=== PATIENT | male | born 1980 | race Caucasian/White ===

== ENCOUNTER → 2016-10-20 | Outpatient (REF) ==
--- NOTE | 2016-10-20 15:44 | REP ---
PARTIAL LUMBAR SPINE, THREE VIEWS: HISTORY: Degenerative disc disease. COMPARISON: 10/03/2016. There is no acute fracture or subluxation. There are old compression fractures of the T12 and L1 vertebral bodies with minimal height loss. The L3-4 and L4-5 intervertebral discs are decreased in height consistent with disc degeneration. Osteophytes are present on T12 through L2. There is loss the normal lordotic curve. IMPRESSION: Degenerative change as described above. Signed by Enrique Tovar MD 10/20/2016 03:47 P
--- NOTE | 2016-10-20 15:52 | REP ---
RIGHT SHOULDER, THREE VIEWS: HISTORY: Degenerative joint disease. There is no acute fracture or dislocation. The joint spaces are normal in appearance. IMPRESSION: There is no acute fracture or dislocation. Signed by Enrique Tovar MD 10/20/2016 03:53 P
--- NOTE | 2016-10-20 15:53 | REP ---
PARTIAL RIGHT KNEE, TWO VIEWS: HISTORY: Degenerative joint disease. There is no acute fracture or dislocation. The joint spaces are normal in appearance. IMPRESSION: There is no acute fracture or dislocation. Signed by Enrique Tovar MD 10/21/2016 08:25 A
== END ==
LOC: M SMT 13:00
PROVIDERS: ATTEND Internal Medicine
DX: Z02.1 Encounter for pre-employment examination (principal)

== ENCOUNTER → 2022-04-22 | Outpatient (CLI) | payer OTHER | LOC: M PLAIMG 10:01 | PROVIDERS: ATTEND Nurse Practitioner Adult Health | DX: M85.611 Other cyst of bone, right shoulder (principal); M19.011 Primary osteoarthritis, right shoulder; M67.813 Other specified disorders of tendon, right shoulder; M25.311 Other instability, right shoulder ==

== ENCOUNTER → 2025-06-13 | Outpatient (CLI) | payer OTHER | LOC: M PLAIMG 06:38 | PROVIDERS: ATTEND Nurse Practitioner Family | DX: M22.41 Chondromalacia patellae, right knee (principal); M71.21 Synovial cyst of popliteal space [Baker], right knee; M25.461 Effusion, right knee ==